=== PATIENT | male | born 1950 | race Caucasian/White ===

== ENCOUNTER 2016-06-24 11:38 | Day surgery (SDC) | payer MEDICARE, OTHER ==
--- NOTE | ~2016-06-24 | EGD ---
EGD REPORT [facility] [address] [address] NAME: AHSAN FRIAS JR : 50 [place] [facility] [place] [id number] AGE: 65 ADM/REG DATE : 06/24/16 MR#: [id number] REPORT SERV DATE: 06/24/16 DICTATED BY: KIKA CACERES DATE: 06/24/16 REPORT STATUS : Draft [facility]: [facility] DATE: 06/24/16 Endoscopy Center Patient Name: Ahsan Frias Date of : 1950 Attending MD: KIKA CACERES MD Procedure Date No Time: 06/24/2016 Procedure: Upper GI endoscopy Indications: Heartburn, Positive celiac serologies, Diarrhea, Eructation Referring MD: JORGE L SANTANA MD, CADEN JOY Medicines: Propofol per Anesthesia Complications: No immediate complications. Estimated blood loss: None. Procedure: Pre-Anesthesia Assessment: - After reviewing the risks and benefits, the patient was deemed in satisfactory condition to undergo the procedure. - Prior to the procedure, a History and Physical was performed, and patient medications and allergies were reviewed. The patient's tolerance of previous anesthesia was also reviewed. The risks and benefits of the procedure and the sedation options and risks were discussed with the patient. All questions were answered, and informed consent was obtained. Prior Anticoagulants: The patient has taken no previous anticoagulant or antiplatelet agents. ASA Grade Assessment: III - A patient with severe systemic disease. After reviewing the risks and benefits, the patient was deemed in satisfactory condition to undergo the procedure. After obtaining informed consent, the endoscope was passed under direct vision. Throughout the procedure, the patient's blood pressure, pulse, and oxygen saturations were monitored continuously. The GIF [id number] was introduced through the mouth, and advanced to the jejunum. The upper GI endoscopy was accomplished without difficulty. The patient tolerated the procedure well. Findings: Mildly severe esophagitis with no bleeding was found. The entire examined stomach and gastroesophageal junction (on retroflexion) were normal. The examined duodenum was normal. Biopsies were taken with a cold forceps for histology. Estimated blood loss: none. Impression: - Mildly severe reflux esophagitis. EGD REPORT [address] [address] NAME: AHSAN FRISA JR : 50 [place] [facility] [place]#: [id number] AGE: 65 ADM/REG DATE : 06/24/16 MR#: [id number] REPORT SERV DATE: 06/24/16 DICTATED BY: KIKA CACERES DATE: 06/24/16 REPORT STATUS : Draft TRANSCRIBED BY: [employer] DATE: 06/24/16 - Normal stomach and gastroesophageal junction. - Normal examined duodenum. Biopsied. Recommendation: - Discharge patient to home (ambulatory). - Begin gluten-free diet. Will arrange a dietary consultation. - If approved by Nephrology, discontinue Pepcid and begin Protonix (pantoprazole) 40 mg each morning for 2 months. If improved, may then resume Pepcid (famotidine) 20 mg twice daily. - Proceed with colonoscopy today. - Patient has a contact number available for emergencies. The signs and symptoms of potential delayed complications were discussed with the patient. Return to normal activities tomorrow. Written discharge instructions were provided to the patient. Procedure Code(s): --- Professional --- 38929, Esophagogastroduodenoscopy, flexible, transoral; with biopsy, single or multiple Diagnosis Code(s): --- Professional --- K21.0, Gastro-esophageal reflux disease with esophagitis R12, Heartburn R76.8, Other specified abnormal immunological findings in serum R19.7, Diarrhea, unspecified R14.2, Eructation CPT copyright 2013 [employer]. All rights reserved. The codes documented in this report are preliminary and upon qa tester review may be revised to meet current compliance requirements. KIKA CACERES MD 06/24/2016 2:23 PM This report has been signed electronically. Number of Addenda: 0 Note Initiated On: 06/24/2016 2:07 PM Scope Withdrawal Time 0 hours 0 minutes 0 seconds [address] [id number]
--- NOTE | ~2016-06-24 | EGD ---
EGD REPORT [facility] [address] [address] NAME: AHSAN FRIAS JR : 50 [place] [facility] [place] [id number] AGE: 65 ADM/REG DATE : 06/24/16 MR#: [id number] REPORT SERV DATE: 06/24/16 DICTATED BY: KIKA CACERES DATE: 06/24/16 REPORT STATUS : Draft [facility]: [facility] DATE: 06/24/16 Endoscopy Center Patient Name: Ahsan Frias Date of : 1950 Attending MD: KIKA CACERES MD Procedure Date No Time: 06/24/2016 Procedure: Colonoscopy Indications: Chronic diarrhea Referring MD: JORGE L SANTANA MD, CADEN JOY Medicines: Propofol per Anesthesia Complications: No immediate complications. Estimated blood loss: None. Procedure: Pre-Anesthesia Assessment: - After reviewing the risks and benefits, the patient was deemed in satisfactory condition to undergo the procedure. - Prior to the procedure, a History and Physical was performed, and patient medications and allergies were reviewed. The patient's tolerance of previous anesthesia was also reviewed. The risks and benefits of the procedure and the sedation options and risks were discussed with the patient. All questions were answered, and informed consent was obtained. Prior Anticoagulants: The patient has taken no previous anticoagulant or antiplatelet agents. ASA Grade Assessment: III - A patient with severe systemic disease. After reviewing the risks and benefits, the patient was deemed in satisfactory condition to undergo the procedure. After I obtained informed consent, the scope was passed under direct vision. Throughout the procedure, the patient's blood pressure, pulse, and oxygen saturations were monitored continuously. The CF [id number] was introduced through the anus and advanced to the cecum, identified by appendiceal orifice and ileocecal valve. The colonoscopy was performed without difficulty. The appendiceal orifice was photographed. The patient tolerated the procedure well. The quality of the bowel preparation was good. The bowel preparation used was split dose polyethylene glycol (PEG). Scope withdrawal time was greater than 8 minutes. Findings: The perianal and digital rectal examinations were normal. Pertinent negatives include normal sphincter tone. Non-bleeding internal hemorrhoids were found during retroflexion and were small and Grade I (internal hemorrhoids that do not prolapse). EGD REPORT [id number] [place]. [address] NAME: AHSAN FRIAS JR : [birth year] STATUS : [facility]#: [id number] AGE: 65 ADM/REG DATE : 06/24/16 MR#: [id number] REPORT SERV DATE: 06/24/16 DICTATED BY: KIKA CACERES DATE: 06/24/16 REPORT STATUS : Draft TRANSCRIBED BY: [employer] [facility] DATE: 06/24/16 Multiple small-mouthed diverticula were found in the descending colon. A sessile polyp was found in the transverse colon. The polyp was 5 mm in size. The polyp was removed with a cold snare. Resection and retrieval were complete. Estimated blood loss: none. The descending colon and ascending colon appeared normal. Biopsies were taken with a cold forceps for histology. Estimated blood loss: none. The exam was otherwise without abnormality. Impression: - Non-bleeding internal hemorrhoids. - Mild diverticulosis in the descending colon. - The descending colon and ascending colon are normal. Biopsied. - The examination was otherwise normal. Recommendation: - Discharge patient to home (ambulatory). - Gluten-free diet. - Continue present medications. - Await pathology results. - Repeat colonoscopy in 5 years for surveillance. - Return to GI clinic PRN. - Patient has a contact number available for emergencies. The signs and symptoms of potential delayed complications were discussed with the patient. Return to normal activities tomorrow. Written discharge instructions were provided to the patient. Procedure Code(s): --- Professional --- 44934, Colonoscopy, flexible, proximal to splenic flexure; with removal of tumor(s), polyp(s), or other lesion(s) by snare technique 61843, 59, Colonoscopy, flexible, proximal to splenic flexure; with biopsy, single or multiple Diagnosis Code(s): --- Professional --- K64.0, First degree hemorrhoids K57.30, Diverticulosis of large intestine without perforation or abscess without bleeding K52.9, Noninfective gastroenteritis and colitis, unspecified CPT copyright 2013 [employer]. All rights reserved. The codes documented in this report are preliminary and upon automotive parts person review may be revised to meet current compliance requirements. EGD REPORT [facility] [address] [address] NAME: AHSAN FRIAS JR : 50 STATUS : [facility]#: [id number] AGE: 65 ADM/REG DATE : 06/24/16 MR#: [id number] REPORT SERV DATE: 06/24/16 DICTATED BY: KIKA CACERES DATE: 06/24/16 REPORT STATUS : Draft TRANSCRIBED BY: [employer] DATE: 06/24/16 KIKA CACERES MD 06/24/2016 2:50 PM This report has been signed electronically. Number of Addenda: 0 Note Initiated On: 06/24/2016 2:05 PM Scope Withdrawal Time 0 hours 8 minutes 46 seconds [address] [address]
[~2016-06-24 11:38] MED LIST: AVAP150 PO; CO Q-10200 MG PO; COQ 10; FLOMAX4 PO; FOSAMAX70 MG PO; LOM PO; MYFORTIC360 MG PO; OS500+D PO; P5 PO; PEP20 PO; PRAVACHOL40 MG PO; PROGRAF0.5; VIT D; VITE PO; Z100 PO; ZYRTEC ALLGY10 MG PO
[2016-06-24 12:38] LABS: BUN (BLOOD UREA NITROGEN) 26 MG/DL (6-23); CALCIUM, SERUM 9.4 MG/DL (8.5-10.4); CHLORIDE, SERUM 106 MMOL/L (96-112); CO2 (CARBON DIOXIDE) 28 MMOL/L (24-34); CREATININE 2.09 MG/DL (0.70-1.30); GFR AFRICAN AMERICAN 37 ML/MIN (>=60); GFR NON AFRICAN AMERICAN 32 ML/MIN (>=60); GLUCOSE, SERUM 92 MG/DL (60-99); POTASSIUM, SERUM 4.6 MMOL/L (3.5-5.3); SODIUM, SERUM 140 MMOL/L (135-148)
[2016-10-14] MEDS ORDERED: MYFORTIC360 MG PO (16:49)
[2016-10-14] MEDS ORDERED: AVAP150 PO (16:50)
[2016-10-14] MEDS ORDERED: ZORTRESS 0.75 MG PO (16:54)
[2016-10-14] MEDS ORDERED: LOM PO (16:55)
[2016-10-14] MEDS ORDERED: PEP20 PO (16:56)
[2016-10-14] MEDS ORDERED: ZYRTEC ALLGY10 MG PO (16:56)
[2016-10-14] MEDS ORDERED: Z100 PO (16:56)
[2016-10-14] MEDS ORDERED: FLOMAX4 PO (16:57)
[2016-10-14] MEDS ORDERED: PRAVACHOL40 MG PO (16:57)
[2016-10-14] MEDS ORDERED: P5 PO (16:58)
[2016-10-14] MEDS ORDERED: VITE PO (16:59)
[2016-10-14] MEDS ORDERED: CO Q-10200 MG PO (16:59)
[2016-10-14] MEDS ORDERED: SILVADENE1 % TOP (17:00)
[2016-10-14] MEDS ORDERED: ANDERSON PO (17:01)
[2016-10-16] MEDS ORDERED: LOP25 PO (14:44)
[2016-10-16] MEDS ORDERED: ASAB PO (14:45)
== END 2016-06-24 23:59 | disposition home or self-care (01) ==
LOC: DMU 11:38
PROVIDERS: Anesthesiology; Internal Medicine Gastroenterology
PROC: 0DBM8ZX Excision of Descending Colon, Via Natural or Artificial Opening Endoscopic, Diagnostic (ICD-10-PCS; 2016-06-24)
PROC: 0DB98ZX Excision of Duodenum, Via Natural or Artificial Opening Endoscopic, Diagnostic (ICD-10-PCS; principal; 2016-06-24 13:00)
PROC: 0DBK8ZX Excision of Ascending Colon, Via Natural or Artificial Opening Endoscopic, Diagnostic (ICD-10-PCS; 2016-06-24 13:00)
PROC: 0DBL8ZX Excision of Transverse Colon, Via Natural or Artificial Opening Endoscopic, Diagnostic (ICD-10-PCS; 2016-06-24 13:00)
DX: K57.30 Diverticulosis of large intestine without perforation or abscess without bleeding (principal); K52.9 Noninfective gastroenteritis and colitis, unspecified; K64.0 First degree hemorrhoids; K21.0 Gastro-esophageal reflux disease with esophagitis; R76.8 Other specified abnormal immunological findings in serum; I10 Essential (primary) hypertension; E78.00 Pure hypercholesterolemia, unspecified; M10.9 Gout, unspecified; Z90.49 Acquired absence of other specified parts of digestive tract; Z94.0 Kidney transplant status; Z96.653 Presence of artificial knee joint, bilateral; Z98.890 Other specified postprocedural states
CPT/HCPCS: 80048; 88305